=== PATIENT | female | born 1995 | race Caucasian/White ===

== ENCOUNTER 2018-07-12 16:48 | Outpatient (CLI) | payer OTHER | END 2018-07-12 18:13 | disposition home or self-care (01) | LOC: OBT 16:48 → L-D 16:50 → OBT 18:13 | DX: O36.8130 Decreased fetal movements, third trimester, not applicable or unspecified (principal); Z3A.37 37 weeks gestation of pregnancy | CPT/HCPCS: 76818 ==

== ENCOUNTER 2018-07-14 08:27 | Outpatient (CLI) | payer OTHER | END 2018-07-14 10:32 | disposition home or self-care (01) | LOC: OBT 08:27 → L-D 08:27 → OBT 10:32 | DX: O36.8130 Decreased fetal movements, third trimester, not applicable or unspecified (principal); O36.8330 Maternal care for abnormalities of the fetal heart rate or rhythm, third trimester, not applicable or unspecified; Z3A.37 37 weeks gestation of pregnancy | CPT/HCPCS: 76818 ==

== ENCOUNTER 2018-07-18 09:49 | Outpatient (CLI) | payer OTHER | END 2018-07-18 11:32 | disposition home or self-care (01) | LOC: OBT 09:49 → L-D 09:49 → OBT 11:32 | DX: O36.8130 Decreased fetal movements, third trimester, not applicable or unspecified (principal); Z3A.34 34 weeks gestation of pregnancy | CPT/HCPCS: 76818 ==

== ENCOUNTER 2018-07-31 09:34 | Inpatient (IN) | payer OTHER ==
[2018-07-31] MEDS: LACTATED RINGER'S 1,000 ML IV ×2 (12:51→20:58)
[2018-07-31] MEDS ORDERED: OXYTOCIN 30 UNITS/LR 500 ML IV (13:00)
[2018-07-31] MEDS ORDERED: CARBOPROST 250 MCG INJ IM (13:00)
[2018-07-31] MEDS ORDERED: MISOPROSTOL 200 MCG TAB PR (13:00)
[2018-07-31] MEDS ORDERED: BUTORPHANOL 2 MG INJ IV (13:00)
[2018-07-31] MEDS ORDERED: METHYLERGONOVINE 0.2 MG INJ IM (13:00)
[2018-07-31] MEDS ORDERED: FENTAnyl 2MCG/ML-ROPIV 0.2% 100 ML (13:01)
[2018-07-31 13:22] LABS: ADD MAN DIFF? NO
[2018-07-31 13:24] LABS: BASOPHIL # 0.1 10^3/ul (0.0-0.1); BASOPHILS % 0.5 % (0.0-2.0); EOSINOPHILS # 0.4 10^3/ul (0.0-0.5); EOSINOPHILS % 2.9 % (0.0-7.0); HEMATOCRIT 34.3 % (37.0-47.0); HEMOGLOBIN 10.8 g/dl (12.0-16.0); LYMPHOCYTES # 1.7 10^3/ul (0.8-2.9); LYMPHOCYTES % 14.2 % (15.0-51.0); MEAN CORPUSCULAR HEMOGLOBIN 24.7 pg (29.0-33.0); MEAN CORPUSCULAR HGB CONC 31.5 g/dl (32.0-37.0); MEAN CORPUSCULAR VOLUME 78.5 fl (82.0-101.0); MONOCYTE # 0.7 10^3/ul (0.3-0.9); NEUTROPHIL # 9.3 10^3/ul (1.6-7.5); NEUTROPHILS % 75.7 % (39.0-77.0); PLATELET COUNT 303 10^3/UL (140-415); RED BLOOD COUNT 4.37 10^6/ul (4.20-5.40); RED CELL DISTRIBUTION WIDTH 15.5 % (11.5-14.5)
[2018-07-31 13:24] LABS: WHITE BLOOD COUNT 12.2 10^3/ul (4.8-10.8)
[2018-07-31] MEDS ORDERED: NALOXONE (0.4 MG/ML) INJ IV (13:30)
[2018-07-31] MEDS ORDERED: ALBUTEROL HFA 8 GM INHALER INH (13:30)
[2018-07-31 13:49] LABS: INR 0.93; PROTIME 12.6 Sec (11.9-14.9)
[2018-07-31 13:50] LABS: PARTIAL THROMBOPLASTIN TIME 25.3 Sec (23.0-35.0)
[2018-07-31] MEDS: OXYTOCIN 30 UNITS/LR 500 ML IV (13:53)
[2018-07-31 15:11] LABS: RAPID PLASMA REAGIN NONREACTIVE (NR)
[2018-07-31] MEDS: FENTAnyl 2MCG/ML-ROPIV 0.2% 100 ML BAG EPI ×2 (20:46→20:47)
[2018-08-01] MEDS: MINERAL OIL LIGHT 10 ML VIAL TOP (03:12)
[2018-08-01] MEDS: LIDOCAINE 1% (MPF) 30 ML INJ INJ (03:12)
[2018-08-01] MEDS: OXYTOCIN 30 UNITS/LR 500 ML IV ×2 (03:18→03:37)
[2018-08-01] MEDS ORDERED: IBUPROFEN 600 MG TAB PO (04:00)
[2018-08-01] MEDS: LACTATED RINGER'S 1,000 ML IV (04:45)
[2018-08-01] MEDS ORDERED: MISOPROSTOL 200 MCG TAB PR (06:00)
[2018-08-01] MEDS ORDERED: CARBOPROST 250 MCG INJ IM (06:00)
[2018-08-01] MEDS ORDERED: LANOLIN HPA 1 PKT TOP (06:00)
[2018-08-01] MEDS ORDERED: ZOLPIDEM 5 MG TAB PO (06:00)
[2018-08-01] MEDS ORDERED: ALBUTEROL HFA 8 GM INHALER INH (06:00)
[2018-08-01] MEDS ORDERED: OXYTOCIN 30 UNITS/LR 500 ML IV (06:00)
[2018-08-01] MEDS ORDERED: METHYLERGONOVINE 0.2 MG INJ IM (06:00)
[2018-08-01] MEDS: BENZOCAINE 20% 56 ML SPRAY TOP (06:04)
[2018-08-01] MEDS: IBUPROFEN 600 MG TAB PO ×3 (06:04→17:58)
[2018-08-01] MEDS: WITCH HAZEL/GLYCERIN PAD PR (06:04)
[2018-08-01] MEDS: SENNA/DOCUSATE NA (8.6MG/50MG) TAB PO ×2 (08:08→21:30)
[2018-08-01] MEDS: PRENATAL VITAMIN PO (08:08)
[2018-08-02] MEDS: WITCH HAZEL/GLYCERIN PAD PR (00:50)
[2018-08-02] MEDS: IBUPROFEN 600 MG TAB PO ×4 (00:50→17:28)
[2018-08-02 08:46] LABS: ADD MAN DIFF? NO
[2018-08-02 08:49] LABS: BASOPHIL # 0.1 10^3/ul (0.0-0.1); BASOPHILS % 0.3 % (0.0-2.0); EOSINOPHILS # 0.2 10^3/ul (0.0-0.5); EOSINOPHILS % 1.5 % (0.0-7.0); HEMOGLOBIN 8.4 g/dl (12.0-16.0); LYMPHOCYTES # 2.3 10^3/ul (0.8-2.9); LYMPHOCYTES % 14.9 % (15.0-51.0); MEAN CORPUSCULAR HEMOGLOBIN 24.9 pg (29.0-33.0); MEAN CORPUSCULAR HGB CONC 31.1 g/dl (32.0-37.0); MEAN CORPUSCULAR VOLUME 80.1 fl (82.0-101.0); MEAN PLATELET VOLUME 10.7 fl (7.4-10.4); MONOCYTE # 1.1 10^3/ul (0.3-0.9); NEUTROPHIL # 11.7 10^3/ul (1.6-7.5); NEUTROPHILS % 75.7 % (39.0-77.0); PLATELET COUNT 243 10^3/UL (140-415); RED BLOOD COUNT 3.37 10^6/ul (4.20-5.40)
[2018-08-02 08:49] LABS: WHITE BLOOD COUNT 15.4 10^3/ul (4.8-10.8)
[2018-08-02] MEDS: SENNA/DOCUSATE NA (8.6MG/50MG) TAB PO ×2 (08:59→20:41)
[2018-08-02] MEDS: PRENATAL VITAMIN PO (08:59)
[2018-08-02] MEDS: OXYCODONE/ASPIRIN (4.88/325) TAB PO (20:41)
[2018-08-03] MEDS: IBUPROFEN 600 MG TAB PO ×4 (00:09→17:19)
[2018-08-03] MEDS: PRENATAL VITAMIN PO (08:33)
[2018-08-03] MEDS: SENNA/DOCUSATE NA (8.6MG/50MG) TAB PO (08:33)
[2018-08-03] MEDS: DIPHTH/TET/ACEL PERTUSS (ADULT) 0.5 ML VIAL IM* (08:34)
[2018-08-03] MEDS: OXYCODONE/ASPIRIN (4.88/325) TAB PO ×2 (11:02→14:32)
[2018-08-03] MEDS: WITCH HAZEL/GLYCERIN PAD PR (11:06)
[2018-08-03] MEDS: BENZOCAINE 20% 56 ML SPRAY TOP (11:06)
== END 2018-08-03 19:15 | disposition home or self-care (01) | DRG 807 ==
LOC: OBT 09:34 → PP1 08-01 05:14 → L-D 09:34 → OBT 09:41 → L-D 09:41
PROVIDERS: Obstetrics & Gynecology
PROC: 10E0XZZ Delivery of Products of Conception, External Approach (ICD-10-PCS; principal; 2018-08-01)
PROC: 0W8NXZZ Division of Female Perineum, External Approach (ICD-10-PCS; 2018-08-01)
DX: O77.0 Labor and delivery complicated by meconium in amniotic fluid (principal); Z37.0 Single live birth; Z3A.40 40 weeks gestation of pregnancy
CPT/HCPCS: 62319; 76815; 85025; 85610; 85730; 86592; 86850; 86900; 86901; 99464